=== PATIENT | male | born 1970 | race Two or more races ===

== ENCOUNTER 2020-04-19 03:24 | Emergency (ER) | payer MEDICAID, OTHER ==
[~2020-04-19] VITALS: Ht 177.8 cm; Wt 81.6 kg
--- NOTE | 2020-04-19 03:35 | NUR ---
PT WAS BIBRA FROM A HOTEL ROOM. PER EMS PT WAS FOUND UNRESPONSIVE ON THE FIELD. .2 MG OF NARCA IN AND .2 MG OF NARCAN IV GIVEN BY EMS LOWERATOR OPERATOR. PT A, OX4. ADMITTED ON SMOKING FENTANYL AND USING METH. DENIED ANY PAIN OR DISCOMFORT. PT WAS PLACED ON BED 12ER AND ON MONITOR. VSS. WILL CONT TO MONITOR ,
--- NOTE | 2020-04-19 05:57 | NUR ---
PT IS AWAKE, ALERT AND AMBULATORY W/ STEADY GAITS. STABLE FOR D/C PER MD.IV removed. Catheter intact and site benign. Pressure and 4x4 applied to site. No bleeding noted.Patient discharged to home in stable condition. Written and verbal after care instructions given. Patient verbalizes understanding of instruction.
[2020-04-19 05:58] VITALS: BP 125/77
== END 2020-04-19 05:59 | disposition home or self-care (01) ==
LOC: ER 03:27
DX: T40.411A Poisoning by fentanyl or fentanyl analogs, accidental (unintentional), initial encounter (principal); F17.200 Nicotine dependence, unspecified, uncomplicated; Y92.89 Other specified places as the place of occurrence of the external cause